=== PATIENT | male | born 1935 | race Caucasian/White ===

== ENCOUNTER 2019-01-29 06:22 | Day surgery (SDC) | payer MEDICARE, BC ==
[2019-01-29] MEDS ORDERED: Acetaminophen 500 MG Tab PO ONE (06:45)
[2019-01-29] MEDS ORDERED: Scopolamine 1.5 MG Transdermal Patch TOP SCH (06:45)
[2019-01-29] MEDS ORDERED: Nozin Nasal Sanitizer NASBOTH ONE (07:00)
[2019-01-29] MEDS ORDERED: ceFAZolin 2 GM in Premix Bag 1 BAG IV ONE (07:00)
[2019-01-29] MEDS ORDERED: Povidone-Iodine 10% Soln 118.25 ML Bottle ONE (07:09)
[2019-01-29] MEDS: Lactated Ringers 1,000 ML IV SCH ×2 (07:09→22:25)
[2019-01-29] MEDS ORDERED: Propofol 200 MG/20 ML SDV ONE (08:25)
[2019-01-29] MEDS ORDERED: fentaNYL 100 MCG/2 ML SDV ONE (08:25)
[2019-01-29] MEDS ORDERED: Rocuronium 50 MG/5 ML Vial ONE (09:06)
[2019-01-29] MEDS ORDERED: Ondansetron 4 MG/2 ML SDV ONE (09:06)
[2019-01-29] MEDS ORDERED: Glycopyrrolate 0.2 MG/ML 5 ML MDV ONE (09:06)
[2019-01-29] MEDS ORDERED: Neostigmine Methylsulfate 1 MG/ML 5 ML Syringe ONE (09:06)
[2019-01-29] MEDS ORDERED: Dexamethasone 4 MG/ML SDV ONE (09:06)
[2019-01-29] MEDS ORDERED: Succinylcholine 200 MG/10 ML MDV ONE (09:06)
[2019-01-29] MEDS ORDERED: fentaNYL 250 MCG/5 ML SDV ONE (09:09)
[2019-01-29] MEDS ORDERED: Bupivacaine 0.5% 50 ML MDV ONE (09:45)
[2019-01-29] MEDS ORDERED: Acetaminophen/HYDROcodone 325-5 MG Tab PO PRN (10:15)
[2019-01-29] MEDS ORDERED: Acetaminophen 325 MG Tab PO PRN (10:15)
[2019-01-29] MEDS ORDERED: Docusate Sodium 100 MG Cap PO PRN (10:15)
[2019-01-29] MEDS ORDERED: Acetaminophen/oxyCODONE 325-5 MG Tab PO PRN (10:22)
[2019-01-29] MEDS ORDERED: Morphine 2 MG/ML Syringe IVPUSH PRN (10:24)
[2019-01-29] MEDS ORDERED: OMEPRAZOLE 20MG CAP (PTOM) PO SCH ×2 (16:30→21:00)
[2019-01-29] MEDS ORDERED: ROSUVASTATIN 10 MG PO SCH ×2 (17:00→21:00)
--- NOTE | 2019-01-29 18:29 | PCM.OPNOTE ---
- General Post-Op/Procedure Note Date of Surgery/Procedure: 01/29/19 Operative Procedure(s): Right medial unicompartmental arthroplasty, [employer] ZUK prosthesis with size 5 tibia, size E femur and 10mm insert. Findings: End stage OA medial compartment, right knee Pre Op Diagnosis: OA right knee, medial compartment Post-Op Diagnosis: Same Anesthesia Technique: General ET Tube Primary Surgeon: Mac Myers EBL in mLs: 30 Complications: None Condition: Good Free Text/Narrative:: Intake & Output 01/29/19 01/29/19 01/29/19 06:59 14:59 22:59 Intake Total 75 600 Output Total 650 Balance 75 -50 Indications: 83 year old male with progressive pain in the medial aspect of the right knee. He has failed injection therapy with steroids and viscosupplement. Admitted for medial unicompartmental arthroplasty. Risks, benefits and potential complications were discussed. He agrees to proceed. Procedure: After adequate anesthesia was obtained the patient was placed supine with a tourniquet about the right upper thigh. Right leg was prepped and draped in a sterile fashion.The leg was exsanguinated and tourniquet inflated to 300 mg of mercury pressure.A longitudinal incision was made just slightly medial of midline from the superior pole of the patella to the tibial tubercle.A medial parapatellar approach was utilized avoiding the insertion of the VMO. Portion of the fat pad was excised. A limited medial release was performed. Complete loss of the articular surface of the medial femoral condyle was noted with portions of full thickness loss on the tibial plateau.The anterior lip of the tibia was resected with an oscillating saw. The leg was then extended and the extra medullary alignment jig was placed. This was aligned and secured to the femur and tibia.Distal femoral cut was made.The femoral jig was removed and the knee was flexed. Proximal tibia was then cut with a combination of an oscillating and reciprocating saw.Tibial jig was removed. The resected tibial bone was measured for potential tibial component size. Medial meniscus was excised. The femur was then sized to an E component.Cutting jig was secured to the femur.Peg holes were drilled and remaining femoral cuts were made.Guide was removed. Tibia was then sized to a #5 component.This was positioned and tapped into place.Peg holes were drilled. Trial reduction was then done with a 8 mm insert. This fit easily with at least 2 mm of play.Trial components were then removed.The knee was thoroughly irrigated. Bone surfaces were dried and components were then cemented in place. Excess cement was removed. The knee was held in full extension with an 10 mm insert as the cement cured. A 10 mm insert providing 2 mm of laxity in both flexion and extension. The trial was removed and the final 10 mm insert was snapped into position. The knee was irrigated once again. Capsule was then closed with #1 Vicryl in a running fashion. Skin was closed with 2-0 Vicryl and 3-0 Monocryl. Steri-Strips were applied. Light compressive dressing was then placed, the tourniquet was released. Patient tolerated the procedure very well there were no complications and he was taken from the operating room in a stable condition
[2019-01-29] MEDS: Acetaminophen/HYDROcodone 325-5 MG Tab PO PRN ×2 (19:19→23:30)
[2019-01-29] MEDS: Aspirin 325 MG Tab.EC PO SCH (20:12)
[2019-01-29] MEDS: Nozin Nasal Sanitizer NASBOTH SCH (20:14)
[2019-01-29] MEDS: ceFAZolin 1 GM in Premix Bag 1 BAG IV SCH (20:18)
[2019-01-29] MEDS ORDERED: amLODIPine 10 MG Tab (PTOM) PO SCH (21:00)
[2019-01-30] MEDS: Acetaminophen/HYDROcodone 325-5 MG Tab PO PRN (03:35)
[2019-01-30 07:15] VITALS: BP 127/55
[2019-01-30] MEDS ORDERED: LOSARTAN PO SCH (09:00)
[2019-01-30] MEDS ORDERED: HCTZ PO SCH (09:00)
[2019-01-30] MEDS ORDERED: Non-Formulary Medication 1 Each (Rosuvastatin [Crestor] 10 MG) PO SCH (09:00)
[2019-01-30] MEDS: ceFAZolin 1 GM in Premix Bag 1 BAG IV SCH (09:04)
--- NOTE | 2019-01-30 09:11 | PCM.DCSUM1 ---
Discharge Summary - Hospital Course Free Text/Narrative:: 83 year old with progressive right knee pain and osteoarthritis admitted for unicompartmental knee arthroplasty. Tolerated surgery well, no complications overnight. Up with PT in the halls this AM. Dressings changed, incision looks good. Pain controlled with Goodview, no GI problems. Home today, follow up in two weeks. Diagnosis: Stroke: No - Discharge Data Discharge Date: 01/30/19 Discharge Disposition: Home, Self-Care 01 Condition: Good - Discharge Diagnosis/Problem(s) (1) Status post right partial knee replacement SNOMED Code(s): 138372944, [id number], [id number], [id number] ICD Code: Z96.651 - PRESENCE OF RIGHT ARTIFICIAL KNEE JOINT Status: Acute Current Visit: Yes (2) Primary osteoarthritis of right knee SNOMED Code(s): 163164053138652, [id number] ICD Code: M17.11 - UNILATERAL PRIMARY OSTEOARTHRITIS, RIGHT KNEE Status: Chronic Current Visit: No - Patient Summary/Data Operative Procedure(s) Performed: Right medial unicompartmental arthroplasty, [employer] ZUK prosthesis with size 5 tibia, size E femur and 10mm insert. Consults: Consultations 01/29/19 10:15 PT Evaluation and Treatment [CONS] Routine Please Evaluate and Treat. PT Reason for Consult: Ambulation Discharge Disposition: Home w Home Health Special Instructions: right medial unicompartmental knee arthroplasty, ROM and WBAT This query below is only for informational purposes and is not editable. 01/29/19 10:25 Consult to Occupational Therapy [OT Evaluation and Treatment] [CONS] Routine Please Evaluate and Treat. OT Reason for Consult: ADL's Pending Discharge: Yes Discharge Disposition: Home w Home Health This query below is only for informational purposes and is not editable. Admission Diagnosis/Problem: Osteoarthritis - Patient Instructions Diet: Usual Diet as Tolerated Activity: Apply Ice, As Tolerated Driving: Do Not Drive Showering/Bathing: Shower in AM Wound/Incision Care: Keep Operative Site/Wound Site Clean and Dry Wound/Incision, Other: Light dressing as needed Notify Provider of: Fever, Increased Pain, Swelling and Redness, Drainage, Nausea and/or Vomiting - Discharge Plan *PRESCRIPTION DRUG MONITORING PROGRAM REVIEWED*: No *COPY OF PRESCRIPTION DRUG MONITORING REPORT IN PATIENT LUCY: No Prescriptions/Med Rec: Acetaminophen/HYDROcodone [Goodview 325-5 MG] 1 - 2 tab PO Q6H PRN #40 tab PRN Reason: Pain (Moderate 4-6) Home Medications: Home Meds Aspirin [Adult Low Dose Aspirin EC] 81 mg PO DAILY 01/04/14 [History] Hydrochlorothiazide/Losartan [Hyzaar 100-25 MG] 1 tab PO DAILY 01/04/14 [History ] Omeprazole 20 mg PO DAILY 01/04/14 [History] Rosuvastatin [Crestor] 10 mg PO DAILY 01/04/14 [History] Acetaminophen [Tylenol Extra Strength] 1,000 mg PO Q4HR PRN 04/25/17 [History] amLODIPine Besylate [Norvasc] 10 mg PO DAILY 06/01/18 [History] Multivitamin [Multi-Vitamin Daily] 1 each PO DAILY 11/22/18 [History] Acetaminophen/HYDROcodone [Goodview 325-5 MG] 1 - 2 tab PO Q6H PRN #40 tab [Rx] Other Amb Orders: PT Evaluation and Treatment [CONS] Time Frame: 3 Days, Location: None Selected Referrals: Mac Myers MD [Physician] - - Discharge Summary/Plan Comment DC Time >30 min.: No - General Info Functional Status: Reports: Tolerating Diet, Ambulating - Review of Systems General: Reports: No Symptoms HEENT: Reports: No Symptoms Pulmonary: Reports: No Symptoms Cardiovascular: Reports: No Symptoms Gastrointestinal: Reports: No Symptoms Genitourinary: Reports: No Symptoms Skin: Reports: No Symptoms Neurological: Reports: No Symptoms Psychiatric: Reports: No Symptoms - Patient Data Vitals - Most Recent: Last Vital Signs Temp 36.3 C 01/30/19 07:14 Pulse 74 01/30/19 07:14 Resp 18 01/30/19 07:14 BP 127/55 L 01/30/19 07:14 Pulse Ox 95 01/30/19 07:14 Weight - Most Recent: 95.254 kg I&O - Last 24 hours: Intake & Output 01/29/19 01/30/19 01/30/19 22:59 06:59 14:59 Intake Total 7728 1248 Output Total 2060 3871 577 Balance 878 -289 -206 Med Orders - Current: Current Medications Acetaminophen (Tylenol) 650 mg PO Q4H PRN PRN Reason: Pain/Fever Hydrocodone Bitart/Acetaminophen (Goodview 325-5 Mg) 2 tab PO Q4H PRN PRN Reason: Pain (moderate 4-6) Last Admin: 01/30/19 03:35 Dose: 2 tab Amlodipine Besylate (Norvasc) 10 mg PO BEDTIME [facility] Last Admin: 01/29/19 20:12 Dose: 10 mg Aspirin (Ecotrin) 325 mg PO BID [facility] Last Admin: 01/29/19 20:12 Dose: 325 mg Bandage/Support Products ( Nasal Garage [employer]orer) 1 applic NASBOTH BID [facility] Last Admin: 01/29/19 20:14 Dose: 1 applic Docusate Sodium (Colace) 100 mg PO BID PRN PRN Reason: Constipation Last Admin: 01/29/19 20:13 Dose: 100 mg Lactated Ringer's (Ringers, Lactated) 1,000 mls @ 75 mls/hr IV ASDIRECTED [facility] Last Admin: 01/29/19 22:25 Dose: 75 mls/hr Morphine Sulfate (Morphine) 2 mg IVPUSH Q1H PRN PRN Reason: Pain (severe 7-10) Oxycodone/Acetaminophen (Percocet 325-5 Mg) 1 tab PO Q4H PRN PRN Reason: Pain (severe 7-10) Last Admin: 01/29/19 11:35 Dose: 1 tab Losartan/Hctz 100/ (25mg Tab (Ptom)) 0 each PO DAILY [facility] Rosuvastatin 10mg (Tab (Ptom)) 0 each PO BEDTIME [facility] Last Admin: 01/29/19 20:13 Dose: 1 each Omeprazole 20mg Cap ((Ptom)) 0 each PO BEDTIME [facility] Last Admin: 01/29/19 20:12 Dose: 1 each Scopolamine (Transderm-Scop) 1.5 mg TOP Q72H [facility] Stop: 01/31/19 06:46 Last Admin: 01/29/19 07:08 Dose: 1.5 mg Discontinued Medications Acetaminophen (Tylenol Extra Strength) 1,000 mg PO ONETIME ONE Stop: 01/29/19 06:46 Last Admin: 01/29/19 07:09 Dose: 1,000 mg Hydrocodone Bitart/Acetaminophen (Goodview 325-5 Mg) 1 tab PO Q3H PRN PRN Reason: Pain (moderate 4-6) Last Admin: 01/29/19 15:21 Dose: 1 tab Bandage/Support Products ( Nasal [employer]orer) 1 applic NASBOTH ONETIME ONE Stop: 01/29/19 07:01 Last Admin: 01/29/19 07:10 Dose: 12 drop Bupivacaine HCl (Marcaine 0.5%) Confirm Administered Dose 50 ml .ROUTE .STK-MED ONE Stop: 01/29/19 09:46 Last Admin: 01/29/19 09:59 Dose: 20 ml Dexamethasone (Dexamethasone) Confirm Administered Dose 4 mg .ROUTE .STK-MED ONE Stop: 01/29/19 09:07 Fentanyl (Sublimaze) Confirm Administered Dose 100 mcg .ROUTE .STK-MED ONE Stop: 01/29/19 08:26 Fentanyl (Sublimaze) Confirm Administered Dose 250 mcg .ROUTE .STK-MED ONE Stop: 01/29/19 09:10 Glycopyrrolate (Robinul) Confirm Administered Dose 1 mg .ROUTE .STK-MED ONE Stop: 01/29/19 09:07 Cefazolin Sodium/Dextrose 2 gm (/ Premix) 50 mls @ 100 mls/hr IV ONETIME ONE Stop: 01/29/19 07:29 Last Admin: 01/29/19 08:22 Dose: 100 mls/hr Cefazolin Sodium/Dextrose 1 gm (/ Premix) 50 mls @ 100 mls/hr IV Q12H DIANELYS Stop: 01/30/19 08:29 Last Admin: 01/30/19 09:04 Dose: Not Given Neostigmine Methylsulfate (Neostigmine) Confirm Administered Dose 5 mg .ROUTE .STK-MED ONE Stop: 01/29/19 09:07 Ondansetron HCl (Zofran) Confirm Administered Dose 4 mg .ROUTE .STK-MED ONE Stop: 01/29/19 09:07 Povidone Iodine (Betadine 10% Soln) Confirm Administered Dose 1 ml .ROUTE .STK- MED ONE Stop: 01/29/19 07:10 Propofol (Diprivan 20 Ml) Confirm Administered Dose 200 mg .ROUTE .STK-MED ONE Stop: 01/29/19 08:26 Rocuronium Britton (Zemuron) Confirm Administered Dose 50 mg .ROUTE .STK-MED ONE Stop: 01/29/19 09:07 Succinylcholine Chloride (Quelicin) Confirm Administered Dose 200 mg .ROUTE .STK -MED ONE Stop: 01/29/19 09:07 - Exam General: Reports: Alert, Oriented HEENT: Reports: Pupils Equal, Pupils Reactive, EOMI, Mucous Membr. Moist/[place] Neck: Reports: Supple Lungs: Reports: Clear to Auscultation, Normal Respiratory Effort Cardiovascular: Reports: Regular Rate, Regular Rhythm GI/Abdominal Exam: Normal Bowel Sounds, Soft, Non-Tender, No Organomegaly, No Distention, No Abnormal Bruit, No Mass, Pelvis Stable (Male) Exam: Deferred Rectal (Males) Exam: Deferred Skin: Reports: Warm, Dry, Intact Wound/Incisions: Reports: Healing Well, No Drainage Neurological: Reports: No New Focal Deficit Psy/Mental Status: Reports: Alert, Normal Affect, Normal Mood Physical Findings Comments:: 90 degrees of flexion, walking 150 feet
[2019-01-30] MEDS: Aspirin 325 MG Tab.EC PO SCH (09:15)
[2019-01-30] MEDS: Nozin Nasal Sanitizer NASBOTH SCH (09:16)
== END 2019-01-30 11:04 | disposition home or self-care (01) ==
LOC: JP.SDS 06:22 → JP.MS 10:15 → UNDOADMOB 10:15 → UNDODISOB 01-30 11:03 → JP.SDS 01-30 11:04
PROVIDERS: ATTEND Specialist
DX: M17.11 Unilateral primary osteoarthritis, right knee (principal); E11.9 Type 2 diabetes mellitus without complications; F17.220 Nicotine dependence, chewing tobacco, uncomplicated; I10 Essential (primary) hypertension; E78.00 Pure hypercholesterolemia, unspecified; Z79.82 Long term (current) use of aspirin; Z79.899 Other long term (current) drug therapy; Z91.048 Other nonmedicinal substance allergy status
CPT/HCPCS: 27446; 97110; 97116; 97161; 97165; 97530; A9270; C1713; J0330; J0690; J1100; J2405; J2704; J2710; J3010; J3490; J7120; C1776

== ENCOUNTER 2021-01-11 15:07 | Emergency (ER) | payer MEDICARE, BC ==
--- NOTE | 2021-01-11 15:42 | EDM.PDOC ---
<OfficerDaniel - Last Filed: 01/11/21 16:46> ED HPI GENERAL MEDICAL PROBLEM - General Chief Complaint: Respiratory Problem Stated Complaint: COUGH Time Seen by Provider: 01/11/21 15:35 Source of Information: Reports: Patient, Family, RN Notes Reviewed History Limitations: Reports: No Limitations - History of Present Illness INITIAL COMMENTS - FREE TEXT/NARRATIVE: 85-year-old gentleman presents emergency department with a complaint of shortness of breath, he states he has had problems with recurrent pneumonia and bronchitis since the beginning of the year has had 2 rounds of antibiotics with no effect he has had some fevers on and off but now resolved over the last week or so he has progressively gotten worse he does cough, green sputum production he has been wheezing no chest pain no nausea vomiting - Related Data Allergies Allergy/AdvReac Type Severity Reaction Status Date / Time TAPE Allergy Mild Rash Uncoded 01/11/21 15:18 Home Meds: Home Meds Aspirin [Adult Low Dose Aspirin EC] 81 mg PO DAILY 01/04/14 [History] Hydrochlorothiazide/Losartan [Hyzaar 100-25 MG] 1 tab PO DAILY 01/04/14 [History] Omeprazole 20 mg PO DAILY 01/04/14 [History] Rosuvastatin [Crestor] 10 mg PO DAILY 01/04/14 [History] Acetaminophen [Tylenol Extra Strength] 1,000 mg PO BID 04/25/17 [History] amLODIPine Besylate [Norvasc] 10 mg PO DAILY 06/01/18 [History] Multivitamin [Multi-Vitamin Daily] 1 each PO DAILY 11/22/18 [History] Glimepiride 2 mg PO BID 01/11/21 [History] Past Medical History HEENT History: Reports: Cataract, Impaired Vision Cardiovascular History: Reports: CAD, High Cholesterol, Hypertension, Stents (X1) Gastrointestinal History: Reports: GERD Musculoskeletal History: Reports: Arthritis Other Musculoskeletal History: L hip pain. right UNI knee 01/29/19. right shoulder pain Neurological History: Reports: Other (See Below) Other Neuro History: subdural hematoma Endocrine/Metabolic History: Reports: Diabetes, Type II - Infectious Disease History Infectious Disease History: Reports: Chicken Pox - Past Surgical History Head Surgeries/Procedures: Reports: None HEENT Surgical History: Reports: Cataract Surgery Cardiovascular Surgical History: Reports: Coronary Artery Stent GI Surgical History: Reports: Appendectomy, Hernia, Abdominal Other GI Surgeries/Procedures: umbilical hernia Male Surgical History: Reports: TURP-Transurethral Resection of Prostate Endocrine Surgical History: Reports: None Neurological Surgical History: Reports: None Musculoskeletal Surgical History: Reports: Arthroscopic Knee, Knee Replacement Other Musculoskeletal Surgeries/Procedures:: right uni knee DOS 01/29/19 Dermatological Surgical History: Reports: None Social & Family History - Family History Family Medical History: No Pertinent Family History - Tobacco Use Tobacco Use Status *Q: Former Tobacco User (Quit 1970) Used Tobacco, but Quit: Yes Month/Year Tobacco Last Used: 1970 Second Hand Smoke Exposure: No - Caffeine Use Caffeine Use: Reports: None - Recreational Drug Use Recreational Drug Use: No ED ROS GENERAL - Review of Systems Review Of Systems: See Below Constitutional: Denies: Fever, Chills HEENT: Reports: No Symptoms Respiratory: Reports: Shortness of Breath, Wheezing, Cough, Sputum Cardiovascular: Reports: Dyspnea on Exertion GI/Abdominal: Reports: No Symptoms ED EXAM, GENERAL - Physical Exam Exam: See Below Exam Limited By: No Limitations General Appearance: Alert, WD/WN, No Apparent Distress Respiratory/Chest: Decreased Breath Sounds, Crackles, Wheezing, Accessory Muscle Use Cardiovascular: Regular Rate, Rhythm, No Murmur GI/Abdominal: Soft, Non-Tender Extremities: No Pedal Edema Departure - Departure Disposition: Home, Self-Care 01 Clinical Impression: COPD exacerbation - Discharge Information Instructions: Chronic Obstructive Pulmonary Disease Exacerbation, [id number] Referrals: Ryan Whittington MD [Primary Care Provider] - Forms: ED Department Discharge Care Plan Goals: Continue your current medications, and add 5 pills of prednisone with food once daily for 6 consecutive days. Also take Tessalon Perles as directed for cough suppression. Recheck in 2 days as planned. Sepsis Event Note (ED) - Evaluation Sepsis Screening Result: No Definite Risk <Ryan Chaudhary - Last Filed: 01/11/21 20:25> Course - Vital Signs Last Recorded V/S: Last Vital Signs Temp 98.2 F 01/11/21 15:24 Pulse 62 01/11/21 17:45 Resp 15 01/11/21 17:45 BP 146/60 H 01/11/21 17:45 Pulse Ox 96 01/11/21 17:45 - Orders/Labs/Meds Orders: Active Orders 24 hr Category Date Time Status Chest 2V [CR] Urgent Exams 01/11/21 15:41 Taken Labs: Laboratory Tests 01/11/21 01/11/21 01/11/21 Range/Units 15:57 15:57 15:57 WBC 15.5 H (4.5-11.0) K/uL RBC 4.63 (4.30-5.90) M/uL Hgb 13.6 (12.0-15.0) g/dL Hct 41.8 (40.0-54.0) % MCV 90 (80-98) fL MCH 29 (27-31) pg MCHC 33 (32-36) % Plt Count 268 (150-400) K/uL Neut % (Auto) 68 H (36-66) % Lymph % (Auto) 18 L (24-44) % [place] % (Auto) 9 H (2-6) % Eos % (Auto) 5 H (2-4) % Baso % (Auto) 0 (0-1) % Sodium 137 L (140-148) mmol/L Potassium 3.6 (3.6-5.2) mmol/L Chloride 100 (100-108) mmol/L Carbon Dioxide 30 (21-32) mmol/L Anion Gap 10.6 (5.0-14.0) mmol/L BUN 11 (7-18) mg/dL Creatinine 0.8 (0.8-1.3) mg/dL Est Cr Clr Drug Dosing 67.17 mL/min Estimated GFR (MDRD) > 60 (>60) Glucose 81 (74-106) mg/dL Calcium 9.2 (8.5-10.1) mg/dL Total Bilirubin 0.5 (0.2-1.0) mg/dL AST 16 (15-37) U/L ALT 24 (12-78) U/L Alkaline Phosphatase 58 (46-116) U/L Troponin I < 0.017 (0.000-0.056) ng/mL NT-Pro-B Natriuret Pep 142 (5-450) pg/mL Total Protein 7.6 (6.4-8.2) g/dL Albumin 3.7 (3.4-5.0) g/dL Globulin 3.9 H (2.3-3.5) g/dL Albumin/Globulin Ratio 1.0 L (1.2-2.2) Meds: Medications Discontinued Medications Generic Name Dose Route Start Last Admin Trade Name Chyna PRN Reason Stop Dose Admin Sodium Chloride 75 mls @ 3.5 mls/sec 01/11/21 17:00 01/11/21 17:15 Normal Saline IV 3 mls/sec ASDIRECTED DIANELYS Administration Iopamidol 100 ml 01/11/21 16:52 01/11/21 17:15 Isovue-300 (61%) IV 01/11/21 16:53 100 ml ONETIME ONE Administration Sodium Chloride 10 ml 01/11/21 16:52 01/11/21 17:15 Saline Flush FLUSH 01/11/21 16:53 10 ml ONETIME ONE Administration - Re-Assessments/Exams Free Text/Narrative Re-Assessment/Exam: 01/11/21 18:07 Patient turned over from Officer pending CT scan result. He is stable, afebrile, with normal O2 saturations. He has a persistent cough despite 2 rounds of antibiotics, he does have COPD. He has been tested for Covid twice and also has had his first immunization [address] report shows peripheral small infiltrates typical of COVID-19 but he has never been tested positive. I am going to supply him with Tessalon Perles for cough suppression, and given 50 mg of prednisone daily for 6 consecutive days. He is going to recheck at the clinic on Tuesday, in 2 days and can discuss with his primary whether another round of antibiotics would be worthwhile. Departure - Departure Time of Disposition: 18:26 Sepsis Event Note (ED) - Focused Exam Vital Signs: Vital Signs Temp Pulse Resp BP Pulse Ox 01/11/21 17:45 62 15 146/60 H 96 01/11/21 16:54 62 16 130/53 L 92 L 01/11/21 16:19 66 14 125/59 L 96 01/11/21 15:24 98.2 F 77 18 156/63 H 95 01/11/21 15:23 98.2 F 77 18 156/63 H 95
[2021-01-11] MEDS ORDERED: Sodium Chloride 0.9% 10 ML Syringe FLUSH ONE (16:52)
[2021-01-11] MEDS ORDERED: Iopamidol 612 MG/ML 500 ML Multipack Bottle IV ONE (16:52)
[2021-01-11 16:55] VITALS: PULSE 62
[2021-01-11] MEDS ORDERED: Sodium Chloride 0.9% 75 ML IV SCH (17:00)
[2021-01-11 17:45] VITALS: BP 146/60
--- NOTE | 2021-01-11 17:49 | CRLCT ---
INDICATION: SOB. Chronic cough. Wheezing. TECHNIQUE: Volumetric helical scanning of the thorax was performed with 100 cc of Isovue 300 nonionic contrast material IV. Coronal and sagittal reconstructions were obtained. COMPARISON: None. FINDINGS: There is mild patchy ground-glass opacity in the periphery of both lungs. No airway abnormality or pleural effusion is evident. No mediastinal or hilar lymphadenopathy is demonstrated. The heart size is normal. Calcified coronary arterial plaque is demonstrated. As of the upper abdomen are unremarkable except for inapparent enhancing 1.5 cm splenic lesion, presumably an hemangioma. IMPRESSION: 1. Mild patchy ground-glass opacity in the periphery of both lungs. Question COVID-19 pneumonia. 2. Enhancing 1.5 cm splenic lesion, presumably an hemangioma. Please note that all CT scans at this facility use dose modulation, iterative reconstruction, and/or weight-based dosing when appropriate to reduce radiation dose to as low as reasonably achievable. Dictated by Fabian Stokes MD @ Jan 11 2021 5:43PM Signed by Dr. Fabian Stokes @ Jan 11 2021 5:48PM
--- NOTE | 2021-01-12 09:18 | CR ---
CHEST: 2 view CLINICAL HISTORY:SOB COMPARISON:None FINDINGS: There is some minimal patchy density in both infrahilar regions and in the right upper lobe. Heart size and pulmonary vascular areas normal. Lungs are generally hyperaerated. There is a 1 cm nodular density in the anterior chest on the lateral image. It is not seen on the PA film. Review of the current CT chest shows a 9 mm pulmonary nodule. IMPRESSION: Faint bilateral infiltrates. This could represent a pneumonitis. This is superimposed over some chronic lung field changes 1 cm pulmonary nodule in the right upper lobe confirmed on current CT
--- NOTE | 2021-01-12 12:43 | LETTER ---
01/12/2021 Martinez Damian [address] [address] [place], [place] [address] RE: MARTINEZ NAVA : 1935 Dear Martinez, You were recently here at the emergency room with some chest congestion and treated for that. You did have a CAT scan of the chest and the CAT scan did reveal that you had a right- sided pulmonary nodule that is about 1 cm. At this time, I am requesting that you be sure to get this followed up and the radiologist is feeling that you should have a repeat CAT scan in approximately 3 months to re-evaluate this nodule. Please save this letter and take it to your own physician and make an appointment with your own physician so this can be scheduled for you. Thank you. Sincerely, /[phone]
== END 2021-01-11 18:26 | disposition home or self-care (01) ==
LOC: JP.ED 15:07
DX: J44.1 Chronic obstructive pulmonary disease with (acute) exacerbation (principal); I25.10 Atherosclerotic heart disease of native coronary artery without angina pectoris; E78.00 Pure hypercholesterolemia, unspecified; I10 Essential (primary) hypertension; K21.9 Gastro-esophageal reflux disease without esophagitis; M19.90 Unspecified osteoarthritis, unspecified site; E11.9 Type 2 diabetes mellitus without complications; Z87.891 Personal history of nicotine dependence; Z91.048 Other nonmedicinal substance allergy status; Z79.82 Long term (current) use of aspirin; Z79.899 Other long term (current) drug therapy
CPT/HCPCS: 36415; 71046; 71260; 80053; 83880; 84484; 85025; 99285; Q9967

== ENCOUNTER 2021-07-27 11:12 | Emergency (ER) | payer OTHER, MEDICARE, BC ==
--- NOTE | 2021-07-27 11:40 | EDM.PDOC ---
ED HPI GENERAL MEDICAL PROBLEM - General Chief Complaint: Chest Pain Stated Complaint: CHEST PAIN Time Seen by Provider: 07/27/21 11:40 Source of Information: Reports: Patient, RN Notes Reviewed History Limitations: Reports: No Limitations - History of Present Illness INITIAL COMMENTS - FREE TEXT/NARRATIVE: Martinez presents today for complaints of epigastric, chest and abdominal pain for the past 4 weeks. He complains of frequent belching. He reports he has been to [facility] for evaluation without any new findings. He states he has belching and left upper chest pain that radiates to back for weeks. Chest pain worsens with pushing on anterior chest. He has tried topical OTC treatments, taking his medications as directed to help with his discomfort. He denies nausea , vomiting, change in bowel/bladder, fever, chills, SOB, palpitations or other concerns. He drinks well water with osmosis filtering. Water is tested yearly. Denies stool testing or H pylori testing. Primary appointment with Dr. Whittington on 08/19/2021. CT scheduled for 08/14/2021. Left Chest Pain Score (Numeric/FACES): 5 - Related Data Allergies Allergy/AdvReac Type Severity Reaction Status Date / Time TAPE Allergy Mild Rash Uncoded 07/27/21 11:33 Home Meds: Home Meds Aspirin [Adult Low Dose Aspirin EC] 81 mg PO DAILY 01/04/14 [History] Hydrochlorothiazide/Losartan [Hyzaar 100-25 MG] 1 tab PO DAILY 01/04/14 [History] Omeprazole 20 mg PO BID 01/04/14 [History] Rosuvastatin [Crestor] 10 mg PO DAILY 01/04/14 [History] Acetaminophen [Tylenol Extra Strength] 850 mg PO BID 04/25/17 [History] amLODIPine Besylate [Norvasc] 5 mg PO DAILY 06/01/18 [History] Multivitamin [Multi-Vitamin Daily] 1 each PO DAILY 11/22/18 [History] Glimepiride 2 mg PO BID 01/11/21 [History] Albuterol Sulfate 3 ml IH Q4H PRN 07/15/21 [History] Albuterol Sulfate [Proair Hfa] 2 puff IH Q4H PRN 07/15/21 [History] Cholecalciferol (Vitamin D3) [Vitamin D3] 2,000 unit PO DAILY 07/15/21 [History] Fluticasone Propionate [Flonase] 16 gm NASBOTH DAILY 07/15/21 [History] Nitroglycerin [Nitrostat] 0.4 mg SL ASDIRECTED PRN 07/15/21 [History] polyethylene glycoL 3350 [MiraLAX] 17 gm PO DAILY 07/27/21 [History] Past Medical History HEENT History: Reports: Cataract, Impaired Vision Cardiovascular History: Reports: CAD, High Cholesterol, Hypertension, Stents Respiratory History: Reports: None Gastrointestinal History: Reports: GERD Genitourinary History: Reports: None Musculoskeletal History: Reports: Arthritis Other Musculoskeletal History: L hip pain. L shoulder pain. right UNI knee 01/29/19. right shoulder pain Neurological History: Reports: Other (See Below) Other Neuro History: subdural hematoma Psychiatric History: Reports: None Endocrine/Metabolic History: Reports: Diabetes, Type II Hematologic History: Reports: None Immunologic History: Reports: None Oncologic (Cancer) History: Reports: None Dermatologic History: Reports: None - Infectious Disease History Infectious Disease History: Reports: Chicken Pox - Past Surgical History Head Surgeries/Procedures: Reports: None HEENT Surgical History: Reports: Cataract Surgery Cardiovascular Surgical History: Reports: Coronary Artery Stent GI Surgical History: Reports: Appendectomy, Hernia, Abdominal Other GI Surgeries/Procedures: umbilical hernia Male Surgical History: Reports: TURP-Transurethral Resection of Prostate Endocrine Surgical History: Reports: None Neurological Surgical History: Reports: None Musculoskeletal Surgical History: Reports: Arthroscopic Knee, Knee Replacement Other Musculoskeletal Surgeries/Procedures:: right uni knee DOS 01/29/19 Dermatological Surgical History: Reports: None Social & Family History - Family History Family Medical History: No Pertinent Family History - Tobacco Use Tobacco Use Status *Q: Never Tobacco User - Caffeine Use Caffeine Use: Reports: None ED ROS GENERAL - Review of Systems Review Of Systems: See Below Constitutional: Reports: No Symptoms HEENT: Reports: No Symptoms Respiratory: Reports: No Symptoms Cardiovascular: Reports: Chest Pain (left chest, worsens with palpation. Pain radiates to left upper back. ). Denies: Blood Pressure Problem, Claudication, Dyspnea on Exertion, Edema, Lightheadedness, Orthopnea, Palpitations, PND, Syncope Endocrine: Reports: No Symptoms GI/Abdominal: Reports: Abdominal Pain (epigastric discomfort, frequent belching). Denies: Anorexia, Black Stool, Bloody Stool, Constipation, Diarrhea, Decreased Appetite, Difficulty Swallowing, Distension, Flatus, Hematemesis, Hematochezia, Melena, Mucous in Stool, Nausea, Stool Incontinence, Vomiting : Reports: Frequency (increased frequency of uriantion for several years, up to 4 times per night. ). Denies: Dysuria, Flank Pain, Hematuria, Incontinence, Pain, Urgency Musculoskeletal: Reports: Shoulder Pain (left shoulder pain, recent corticosteroid injection), Other (upper left chest pain radiating to upper left back/shoulder). Denies: Neck Pain, Arm Pain, Back Pain, Hand Pain, Leg Pain, Foot Pain, Joint Pain, Joint Swelling, Muscle Pain, Muscle Stiffness Skin: Reports: No Symptoms Neurological: Reports: No Symptoms Psychiatric: Reports: No Symptoms Hematologic/Lymphatic: Reports: No Symptoms Immunologic: Reports: No Symptoms ED EXAM, GENERAL - Physical Exam Exam: See Below Exam Limited By: No Limitations General Appearance: Alert, WD/WN, No Apparent Distress Eye Exam: Bilateral Eye: Normal Inspection, PERRL Ears: Normal External Exam, Normal Canal, Hearing Grossly Normal, Normal TMs Throat/Mouth: Normal Inspection, Normal Lips, Normal Gums, Normal Oropharynx, Normal Voice, No Airway Compromise, Other (fractured tooth at #11-12, pending dental appointment, use of upper denture) Head: Atraumatic, Normocephalic. No: Facial Swelling, Facial Tenderness, Sinus Tenderness Neck: Normal Inspection, Supple, Non-Tender, Full Range of Motion. No: Lymphadenopathy (R), Lymphadenopathy (L) Respiratory/Chest: No Respiratory Distress, Lungs Clear, Normal Breath Sounds, No Accessory Muscle Use, Chest Non-Tender. No: Respiratory Distress, Crackles, Rales, Wheezing, Stridor, Pleural Rub, Retractions, Splinting Cardiovascular: Normal Peripheral Pulses, Regular Rate, Rhythm, No Edema, No Gallop, No Murmur, No Rub Peripheral Pulses: 4+: Radial (L), Radial (R), Dorsalis Pedis (L), Dorsalis Pedis (R) GI/Abdominal: Normal Bowel Sounds, Soft, Non-Tender, No Organomegaly, No Distention, No Abnormal Bruit, No Mass. No: Guarding, Rigid, Rebound, Tender (Male) Exam: Deferred Rectal (Males) Exam: Deferred Extremities: Normal Inspection, Normal Range of Motion, Non-Tender, No Pedal Edema, Normal Capillary Refill Neurological: Alert, Oriented, CN II-XII Intact, Normal Cognition, Normal Gait, Normal Reflexes, No Motor/Sensory Deficits Psychiatric: Normal Affect, Normal Mood Skin Exam: Warm, Dry, Intact, Normal Color, No Rash Lymphatic: No Adenopathy #1 Interpretation EKG Date: 07/27/21 Time: 11:54 Rhythm: NSR Rate (Beats/Min): 58 Holden: Normal P-Wave: Present QRS: Normal ST-T: Normal QT: Normal Course - Vital Signs Last Recorded V/S: Last Vital Signs Temp 35.9 C L 07/27/21 11:32 Pulse 65 07/27/21 11:32 Resp 16 07/27/21 11:32 BP 172/62 H 07/27/21 11:32 Pulse Ox 97 07/27/21 11:32 - Orders/Labs/Meds Orders: Active Orders 24 hr Category Date Time Status H. PYLORI STOOL AG, EIA Stat Lab 07/27/21 12:12 Ordered Saline Lock Insert [OM.PC] Routine Oth 07/27/21 12:11 Ordered EKG 12 Lead [EK] Routine Ther 07/27/21 11:40 Ordered Labs: Laboratory Tests 07/27/21 07/27/21 Range/Units 12:20 12:20 WBC 6.3 (4.5-11.0) K/uL RBC 4.45 (4.30-5.90) M/uL Hgb 14.4 (12.0-15.0) g/dL Hct 41.2 (40.0-54.0) % MCV 93 (80-98) fL MCH 32 H (27-31) pg MCHC 35 (32-36) % Plt Count 165 (150-400) K/uL Neut % (Auto) 49.3 (36-66) % Lymph % (Auto) 36.6 (24-44) % [place] % (Auto) 12.2 H (2-6) % Eos % (Auto) 1.4 L (2-4) % Baso % (Auto) 0.5 (0-1) % Sodium 134 L (140-148) mmol/L Potassium 4.1 (3.6-5.2) mmol/L Chloride 99 L (100-108) mmol/L Carbon Dioxide 32 (21-32) mmol/L Anion Gap 7.1 (5.0-14.0) mmol/L BUN 15 (7-18) mg/dL Creatinine 0.8 (0.8-1.3) mg/dL Est Cr Clr Drug Dosing 65.90 mL/min Estimated GFR (MDRD) > 60 (>60) Glucose 191 H (74-106) mg/dL Calcium 8.5 (8.5-10.1) mg/dL Total Bilirubin 0.7 (0.2-1.0) mg/dL AST 12 L (15-37) U/L ALT 19 (12-78) U/L Alkaline Phosphatase 49 (46-116) U/L Troponin I < 0.017 (0.000-0.056) ng/mL Total Protein 6.5 (6.4-8.2) g/dL Albumin 3.7 (3.4-5.0) g/dL Globulin 2.8 (2.3-3.5) g/dL Albumin/Globulin Ratio 1.3 (1.2-2.2) Amylase 34 (25-115) U/L Lipase 80 (73-393) U/L Patient lab work reviewed, no acute findings in an 86 year old male with ongoing dyspepsia despite use of PPI. Recent visit with [facility] with no significant findings. Hypokalemia Hyperglycemia The CT scan, lab work all reviewed with patient his and family. All their questions were answered. Patient advised to bring in stool sample for H pylori, continue testing water yearly since it is a well source. I will not change any of his medications today as he is stable. Keep follow up with Dr. Whittington as scheduled. Patient and his in agreement. Take tylenol as needed for discomfort. Repeat blood pressure: 158/84, 140/82 Meds: Medications Discontinued Medications Generic Name Dose Route Start Last Admin Trade Name Freq PRN Reason Stop Dose Admin Al Hydroxide/Mg Hydroxide 15 0 ml 07/27/21 13:07 07/27/21 13:13 ml/ Lidocaine HCl 15 ml PO 07/27/21 13:08 30 ml ONETIME ONE Administration Sodium Chloride 100 mls @ 3 mls/sec 07/27/21 12:30 07/27/21 13:33 Normal Saline IV 3 mls/sec ASDIRECTED DIANELYS Administration Iopamidol 100 ml 07/27/21 12:30 07/27/21 13:33 Iopamidol 612 Mg/Ml 100 Ml Bottle IV 100 ml . DIRECTED DIANELYS Administration Sodium Chloride 10 ml 07/27/21 12:11 07/27/21 12:35 Sodium Chloride 0.9% 10 Ml Syringe FLUSH 10 ml ASDIRECTED PRN Administration Keep Vein Open Sodium Chloride 10 ml 07/27/21 12:21 07/27/21 13:33 Sodium Chloride 0.9% 10 Ml Syringe FLUSH 07/27/21 12:22 10 ml ONETIME ONE Administration No change in frequent belching after use of GI cocktail. Patient denies pain. - Radiology Interpretation Free Text/Narrative:: CT chest abdomen and pelvis with IV contrast completed today. Shows generalized bladder wall thickening. Stable 8 x 11 x 8mm pulmonary nodule in the right upper lobe no mass or infiltrate identified. - Re-Assessments/Exams Free Text/Narrative Re-Assessment/Exam: 07/27/21 13:[address], tolerated well. Departure - Departure Time of Disposition: 15:14 Disposition: Home, Self-Care 01 Condition: Good Clinical Impression: Dyspepsia, Hypokalemia, Gastroesophageal reflux disease Instructions: Indigestion, [id number] Referrals: Ryan Whittington MD [Primary Care Provider] - Forms: ED Department Discharge Additional Instructions: You have been evaluated and treated for frequent belching, left chest pain. No acute findings noted. Dyspepsia and hypokalemia. H pylori stool test due to dyspepsia. CT scan of chest, abdomen and pelvis with IV contrast showed thickened bladder and nodule to right chest (no changes to nodule). No changes to medications at this time. Your primary provider may want to change your omeprazole to pantoprazole if appropriate. We will also have your primary follow up on the H pylori testing. Blood glucose slightly elevated - continue current medications and look at portions of food as well as high carbohydrate foods. Decrease portion size and amount of carbohydrates as this can help to decrease belching and stomach upset. Drink one 20 oz bottle sugar free gatorade per day to help with sodium level. Follow up with your primary as scheduled. Return for any worsening, issues or concerns. Sepsis Event Note (ED) - Evaluation Sepsis Screening Result: No Definite Risk - Focused Exam Vital Signs: Vital Signs Temp Pulse Resp BP Pulse Ox 07/27/21 11:32 35.9 C L 65 16 172/62 H 97 07/27/21 11:26 35.9 C L 65 16 172/62 H 97 - My Orders Last 24 Hours: My Active Orders 07/27/21 11:40 EKG 12 Lead [EK] Routine 07/27/21 12:11 Saline Lock Insert [OM.PC] Routine 07/27/21 12:12 H. PYLORI STOOL AG, EIA Stat - Assessment/Plan Last 24 Hours: My Active Orders 07/27/21 11:40 EKG 12 Lead [EK] Routine 07/27/21 12:11 Saline Lock Insert [OM.PC] Routine 07/27/21 12:12 H. PYLORI STOOL AG, EIA Stat Assessment:: Dyspepsia, Hypokalemia, Gastroesophageal reflux disease No acute findings in an 86 year old male with ongoing dyspepsia despite use of PPI. Recent visit with [facility] with no significant findings. Troponin, EKG negative. Hypokalemia Hyperglycemia The CT chest, abdomen, pelvis with IV contrast completed with no acute findings. Patient advised to bring in stool sample for H pylori, continue testing water yearly since it is a well source. No medications today as he is stable. Plan: Patient evaluated and treated for frequent belching, left chest pain. No acute findings noted. Dyspepsia and hypokalemia. H pylori stool test due to dyspepsia. CT scan of chest, abdomen and pelvis with IV contrast showed thickened bladder and nodule to right chest (no changes to nodule). No changes to medications at this time. Your primary provider may want to change your omeprazole to pantoprazole if appropriate. We will also have your primary follow up on the H pylori testing. Blood glucose slightly elevated - continue current medications and look at portions of food as well as high carbohydrate foods. Decrease portion size and amount of carbohydrates as this can help to decrease belching and stomach upset. Follow up with your primary as scheduled. Return for any worsening, issues or concerns.
[2021-07-27 11:56] VITALS: BP 172/62; PULSE 65
[2021-07-27] MEDS ORDERED: Sodium Chloride 0.9% 10 ML Syringe FLUSH PRN (12:11)
[2021-07-27] MEDS ORDERED: Sodium Chloride 0.9% 100 ML IV SCH (12:30)
[2021-07-27] MEDS ORDERED: Iopamidol 612 MG/ML 100 ML Bottle IV SCH (12:30)
[2021-07-27] MEDS: Sodium Chloride 0.9% 10 ML Syringe FLUSH ONE ×2 (12:35→13:33)
[2021-07-27] MEDS ORDERED: Alum Hydrox/Mag Hydrox/Simeth 15 ML, Lidocaine 2% 15 ML PO ONE ×2 (13:07)
--- NOTE | 2021-07-27 14:29 | CT ---
Chest Abdomen Pelvis w Cont CLINICAL HISTORY: Left chest pain TECHNIQUE: Transverse scans were obtained from the thoracic inlet to the lung bases with IV contrast. Auto dose reduction and iterative reconstruction techniques were employed COMPARISONS: 01/11/2021 FINDINGS: Lung window images show a 8 x 11 x 8 mm cyst pulmonary nodule in the right upper lobe. This is essentially unchanged since the January study. No other pulmonary lesions or infiltrates are seen.. Soft tissue window images show there are a few small scattered nonspecific lymph nodes in the mediastinum. Just anterior to the proximal right pulmonary artery is a ill-defined soft tissue density this was present on prior study. This may represent pleural reflection combined with the lymph node. There are atherosclerotic changes in the aorta. There are no pleural effusions CT ABDOMEN AND PEVIS WITH IV CONTRAST COMPARISON: None TECHNIQUE: Axial tomographic images are obtained from the dome of the diaphragm to the iliac crest with IV contrast enhancement. Oral contrast was used. FINDINGS: The livershows no focal mass or biliary dilatation. The gallbladder has a normal appearance. The spleen contains a persistent stable hyperdense mass which is likely a focus of enhancement. This is most consistent with hemangioma.. The pancreas shows no mass or inflammatory change. The adrenal glands appear normal bilaterally. The kidneys show no mass, stones or hydronephrosis is a 1.3 x 1.2 cm cyst in the lower pole of the left kidney. The ureters have a normal course and contour. The bladder is generally thick-walled The small intestinal configuration is nonacute. There is moderate retained stool throughout the colon. Patient has had previous appendectomy. There is sigmoid diverticulosis without evidence of diverticulitis. IMPRESSION: Generalized bladder wall thickening Stable 8 x 11 x 8 mm pulmonary nodule in the right upper lobe no mass or infiltrate is identified
== END 2021-07-27 15:49 | disposition home or self-care (01) ==
LOC: JP.ED 11:12
DX: K21.9 Gastro-esophageal reflux disease without esophagitis (principal); E87.6 Hypokalemia; I25.10 Atherosclerotic heart disease of native coronary artery without angina pectoris; E78.00 Pure hypercholesterolemia, unspecified; I10 Essential (primary) hypertension; M19.90 Unspecified osteoarthritis, unspecified site; E11.9 Type 2 diabetes mellitus without complications; Z91.048 Other nonmedicinal substance allergy status; Z79.82 Long term (current) use of aspirin; Z79.84 Long term (current) use of oral hypoglycemic drugs; Z79.899 Other long term (current) drug therapy
CPT/HCPCS: 36415; 71260; 74177; 80053; 82150; 83690; 84484; 85025; 93005; 99285; A9270; Q9967